=== PATIENT | male | born 1945 | race Caucasian/White ===

== ENCOUNTER → 2016-09-03 | Outpatient (REF) | payer MEDICARE, BC, OTHER | LOC: M SMT 17:12 | PROVIDERS: ATTEND Urology | DX: Z85.51 Personal history of malignant neoplasm of bladder (principal) ==

== ENCOUNTER → 2017-10-14 | Outpatient (REF) | payer MEDICARE, OTHER | LOC: M SMT 17:07 | DX: Z85.51 Personal history of malignant neoplasm of bladder (principal) | CPT/HCPCS: 88108 ==

== ENCOUNTER → 2019-05-04 | Outpatient (REF) | payer MEDICARE, OTHER | LOC: M SMT 13:16 | PROVIDERS: ATTEND Urology | DX: Z85.51 Personal history of malignant neoplasm of bladder (principal) ==

== ENCOUNTER → 2020-05-09 | Outpatient (REF) | payer MEDICARE, OTHER | LOC: M SMT 13:28 | PROVIDERS: ATTEND Urology | DX: Z85.51 Personal history of malignant neoplasm of bladder (principal) ==

== ENCOUNTER → 2021-05-01 | Outpatient (REF) | payer MEDICARE, OTHER, BC | LOC: M SMT 11:38 | PROVIDERS: ATTEND Urology | DX: Z85.51 Personal history of malignant neoplasm of bladder (principal) ==

== ENCOUNTER → 2021-05-08 | Outpatient (CLI) | payer MEDICARE, BC, OTHER ==
[2021-05-08 12:33] LABS: BLOOD UREA NITROGEN 25 MG/DL (7-18); CALCIUM LEVEL 8.9 MG/DL (8.8-10.2); CARBON DIOXIDE LEVEL 30 MEQ/L (21-32); CHLORIDE LEVEL 104 MEQ/L (98-107); CREATININE FOR GFR 1.12 MG/DL (0.70-1.30); GLOMERULAR FILTRATION RATE > 60.0 (>42); GLUCOSE, FASTING 144 MG/DL (70-100); POTASSIUM SERUM 4.3 MEQ/L (3.5-5.1); SODIUM LEVEL 141 MEQ/L (136-145)
== END ==
LOC: M LAB 11:33
PROVIDERS: ATTEND Urology
DX: R31.0 Gross hematuria (principal)

== ENCOUNTER → 2021-05-17 | Outpatient (CLI) | payer MEDICARE, BC, OTHER ==
[~2021-05-17] MED LIST: ISOVUE-370 76% 100ML VIAL ONE
== END ==
LOC: M PLAIMG 13:54
PROVIDERS: ATTEND Urology
DX: R31.9 Hematuria, unspecified (principal)
CPT/HCPCS: 74178; Q9967

== ENCOUNTER → 2021-07-12 | Outpatient (CLI) | payer MEDICARE, BC, OTHER | LOC: M PLAIMG 08:58 | PROVIDERS: ATTEND Family Medicine | DX: R91.1 Solitary pulmonary nodule (principal) | CPT/HCPCS: 71260; Q9967 ==

== ENCOUNTER → 2021-07-31 | Outpatient (CLI) | payer MEDICARE, BC, OTHER ==
[~2021-07-31] MED LIST changes: +ALOG25TA; +AMLO1TAB24; +CALC600C3; -ISOVUE-370 76% 100ML VIAL ONE; +LANTINJ4 SC; +LOSA50TA28; +MAGN400C; +METF10004; +PRAV80TA2; +SERT150C PO; +SM C81CH2; +[UNRECOGNIZED DRUG - CODE]
== END ==
LOC: M LABSMTC 10:51
PROVIDERS: ATTEND Anesthesiology
DX: Z01.818 Encounter for other preprocedural examination (principal); Z11.52 Encounter for screening for COVID-19

== ENCOUNTER 2021-08-04 08:30 | Day surgery (SDC) | payer MEDICARE, BC, OTHER ==
[~2021-08-04] VITALS: Ht 195.6 cm; Wt 102.4 kg
[~2021-08-04 08:30] MED LIST changes: +NS 1,000 ML IV ONE
[2021-08-04] MEDS ORDERED: SIMETHICONE 40MG/0.6ML DROPS 30ML As Ordered ONE (10:36)
[2021-08-04] MEDS ORDERED: LIDOCAINE 2% 100MG/5ML SDV (FOR ANES.) As Ordered ONE (10:36)
[2021-08-04] MEDS ORDERED: propofoL 200 MG/20 ML VIAL As Ordered ONE (10:36)
[2021-08-04 11:05] VITALS: BP 130/73
== END 2021-08-04 11:05 | disposition home or self-care (01) ==
LOC: M OPP 08:30
PROVIDERS: ATTEND Internal Medicine Gastroenterology
DX: Z12.11 Encounter for screening for malignant neoplasm of colon (principal); Z86.010 Personal history of colon polyps; K63.5 Polyp of colon; K57.30 Diverticulosis of large intestine without perforation or abscess without bleeding; K64.8 Other hemorrhoids; E11.9 Type 2 diabetes mellitus without complications; Z86.51 Personal history of combat and operational stress reaction; Z79.02 Long term (current) use of antithrombotics/antiplatelets; Z79.4 Long term (current) use of insulin; Z79.82 Long term (current) use of aspirin; Z79.899 Other long term (current) drug therapy

== ENCOUNTER → 2021-08-22 | Outpatient (CLI) | payer MEDICARE, BC, OTHER ==
[~2021-08-22] MED LIST changes: -NS 1,000 ML IV ONE
== END ==
LOC: M PLARAD 07:36
PROVIDERS: ATTEND Internal Medicine Pulmonary Disease
DX: R91.1 Solitary pulmonary nodule (principal)
CPT/HCPCS: 78815; A9552

== ENCOUNTER → 2021-09-05 | Outpatient (CLI) | payer MEDICARE, BC, OTHER | LOC: M ONCR 09:08 | PROVIDERS: ATTEND General Practice | DX: C44.311 Basal cell carcinoma of skin of nose (principal); Z79.4 Long term (current) use of insulin; Z79.84 Long term (current) use of oral hypoglycemic drugs; Z79.899 Other long term (current) drug therapy; Z80.1 Family history of malignant neoplasm of trachea, bronchus and lung ==

== ENCOUNTER 2021-09-15 10:22 | Outpatient (RCR) | payer MEDICARE, BC, OTHER | END 2021-09-21 | LOC: M ONCR 10:22 | PROVIDERS: ATTEND General Practice | DX: C44.311 Basal cell carcinoma of skin of nose (principal); E11.9 Type 2 diabetes mellitus without complications; Z80.1 Family history of malignant neoplasm of trachea, bronchus and lung; Z79.82 Long term (current) use of aspirin; Z79.899 Other long term (current) drug therapy; Z79.4 Long term (current) use of insulin; Z85.51 Personal history of malignant neoplasm of bladder; Z98.890 Other specified postprocedural states ==

== ENCOUNTER → 2021-09-20 | Outpatient (CLI) | payer MEDICARE, BC, OTHER ==
[2021-09-20 13:59] LABS: BLOOD UREA NITROGEN 22 MG/DL (7-18); CREATININE FOR GFR 0.95 MG/DL (0.70-1.30); GLOMERULAR FILTRATION RATE > 60.0 (>42)
== END ==
LOC: M PLALAB 10:58
PROVIDERS: ATTEND Internal Medicine Pulmonary Disease
DX: R93.5 Abnormal findings on diagnostic imaging of other abdominal regions, including retroperitoneum (principal)

== ENCOUNTER → 2021-09-22 | Outpatient (CLI) | payer MEDICARE, BC, OTHER | LOC: M PLARAD 10:43 | PROVIDERS: ATTEND Internal Medicine Pulmonary Disease | DX: R93.5 Abnormal findings on diagnostic imaging of other abdominal regions, including retroperitoneum (principal) ==

== ENCOUNTER 2021-10-20 15:20 | Outpatient (RCR) | payer MEDICARE, BC, OTHER | END 2021-10-22 | LOC: M ONCR 15:20 | PROVIDERS: ATTEND General Practice | DX: C44.311 Basal cell carcinoma of skin of nose (principal) ==

== ENCOUNTER 2021-11-07 15:24 | Outpatient (RCR) | payer MEDICARE, BC, OTHER | END 2021-11-22 | LOC: M ONCR 15:24 | PROVIDERS: ATTEND General Practice | DX: C44.311 Basal cell carcinoma of skin of nose (principal) ==

== ENCOUNTER → 2021-11-23 | Outpatient (CLI) | payer MEDICARE, BC, OTHER | LOC: M RAD 10:28 | PROVIDERS: ATTEND Internal Medicine Pulmonary Disease | DX: R91.1 Solitary pulmonary nodule (principal); R93.7 Abnormal findings on diagnostic imaging of other parts of musculoskeletal system ==

== ENCOUNTER → 2021-12-08 | Outpatient (CLI) | payer MEDICARE, BC, OTHER | LOC: M ONCR 15:17 | PROVIDERS: ATTEND General Practice | DX: Z08 Encounter for follow-up examination after completed treatment for malignant neoplasm (principal); Z85.828 Personal history of other malignant neoplasm of skin ==

== ENCOUNTER → 2022-05-07 | Outpatient (REF) | payer MEDICARE, BC, OTHER | LOC: M SMT 13:04 | PROVIDERS: ATTEND Urology | DX: Z85.51 Personal history of malignant neoplasm of bladder (principal) ==

== ENCOUNTER → 2022-05-30 | Outpatient (CLI) | payer MEDICARE, BC, OTHER | LOC: M PLAIMG 09:47 | PROVIDERS: ATTEND Internal Medicine Pulmonary Disease | DX: R91.1 Solitary pulmonary nodule (principal) ==

== ENCOUNTER → 2022-06-08 | Outpatient (CLI) | payer MEDICARE, BC, OTHER | LOC: M ONCR 14:41 | PROVIDERS: ATTEND General Practice | DX: Z08 Encounter for follow-up examination after completed treatment for malignant neoplasm (principal); Z85.828 Personal history of other malignant neoplasm of skin; L59.8 Other specified disorders of the skin and subcutaneous tissue related to radiation; Z79.4 Long term (current) use of insulin; Z79.82 Long term (current) use of aspirin; Z79.84 Long term (current) use of oral hypoglycemic drugs; Z79.899 Other long term (current) drug therapy; Z92.3 Personal history of irradiation ==

== ENCOUNTER → 2023-07-12 | Outpatient (CLI) | payer MEDICARE, BC ==
[~2023-07-12] MED LIST changes: -ALOG25TA; +ALOG25TA PO; -AMLO1TAB24; +AMLO1TAB24 PO; -CALC600C3; +CALC600C3 PO; +JANU100T PO; -LOSA50TA28; +LOSA50TA28 PO; -MAGN400C; +MAGN400C PO; -METF10004; +METF10004 PO; -PRAV80TA2; +PRAV80TA2 PO; -SM C81CH2; +SM C81CH2 PO; -[UNRECOGNIZED DRUG - CODE]; +[UNRECOGNIZED DRUG - CODE] PO
== END ==
LOC: M PLAIMG 08:01
PROVIDERS: ATTEND Internal Medicine Pulmonary Disease
DX: R91.8 Other nonspecific abnormal finding of lung field (principal)

== ENCOUNTER → 2023-07-29 | Outpatient (REF) | payer MEDICARE, BC | LOC: M SMT 09:43 | PROVIDERS: ATTEND Urology | DX: Z85.51 Personal history of malignant neoplasm of bladder (principal) ==

== ENCOUNTER → 2024-11-02 | Outpatient (CLI) | payer MEDICARE, BC ==
[~2024-11-02] MED LIST changes: -PRAV80TA2 PO; +PRAV80TA75 PO
== END ==
LOC: M SOG 12:59
PROVIDERS: ATTEND Physician Assistant
DX: M79.641 Pain in right hand (principal)

== ENCOUNTER 2024-11-04 07:56 | Day surgery (SDC) | payer MEDICARE, BC ==
[~2024-11-04] VITALS: Ht 195.6 cm; Wt 105.9 kg
[~2024-11-04 07:56] MED LIST changes: +LIDOCAINE 2% 100 MG/5 ML SDV (FOR ANES.) As Ordered ONE
[2024-11-04] MEDS ORDERED: LR 1,000 ML IV SCH (08:00)
[2024-11-04] MEDS: SODIUM BICARBONATE 8.4% INJ 50MEQ/50ML VIAL XX ONE (10:15)
[2024-11-04] MEDS: LIDOCAINE W/EPINEPHrine 1% 20 ML VIAL XX ONE (10:15)
[2024-11-04 10:21] VITALS: BP 138/70; TEMP 97.1; O2SAT 96
== END 2024-11-04 10:45 | disposition home or self-care (01) ==
LOC: M SDC 07:56
PROVIDERS: ATTEND Orthopaedic Surgery Hand Surgery
DX: M72.0 Palmar fascial fibromatosis [Dupuytren] (principal)